=== PATIENT | male | born 1945 | race Caucasian/White ===

== ENCOUNTER 2021-09-23 05:41 | Outpatient (CLI) | payer MEDICARE ==
[~2021-09-23] VITALS: Ht 175.3 cm; Wt 79.5 kg
[2021-09-28] MEDS ORDERED: DOXA4TAB2 PO (10:22)
[2021-09-28] MEDS ORDERED: AMLO-251 PO (10:22)
[2021-09-28] MEDS ORDERED: MULT-593 PO (10:22)
[2021-09-28] MEDS ORDERED: MELA1TAB15 PO (10:22)
[2021-09-28] MEDS ORDERED: ENAL10TA75 PO (10:22)
[2021-09-28] MEDS ORDERED: ATOR20TA66 PO (10:22)
[2021-09-28] MEDS ORDERED: HYDR25TA4 PO (10:22)
== END 2021-09-28 12:01 | disposition home or self-care (01) ==
LOC: PREOP 05:41
PROVIDERS: ATTEND Internal Medicine
DX: Z01.818 Encounter for other preprocedural examination (principal)

== ENCOUNTER 2021-10-02 09:51 | Day surgery (SDC) | payer MEDICARE, OTHER ==
--- NOTE | 2021-09-22 15:42 | HISTORY AND PHYSICAL ---
DATE OF SERVICE: COLONOSCOPY HISTORY AND PHYSICAL HISTORY: The patient is a 74-year-old white male referred by Dr. Jung for screening colonoscopy. He had one other colonoscopy performed by myself in 2009, at which time he had moderate diverticular disease with two diminutive polyps, one hyperplastic in the mid rectum and tubular adenoma from the rectosigmoid junction. He is not aware of any family history for colon cancer. He denies bright red blood per rectum, melena, change in bowel habit or abdominal pain. PAST MEDICAL HISTORY: Significant for hypertension and hyperlipidemia. PAST SURGICAL HISTORY: Significant for cholecystectomy in 2004. FAMILY HISTORY: Mother of complications of hepatitis and type 2 diabetes the age of 49. Father of kidney failure at the age of 89. He has a twin brother who has hypertension and chronic kidney disease, recovering from COVID as brother smokes, she does not. SOCIAL HISTORY: The patient is retired with no significant alcohol intake and no past smoking history. REVIEW OF SYSTEMS: CONSTITUTIONAL: The patient denies chills, fever, night sweats or change in weight. CARDIOVASCULAR: Denies chest pain, shortness of breath, orthopnea, PND or pedal edema. PULMONARY: Denies cough, wheezing or dyspnea on exertion. GASTROINTESTINAL: As noted in the HPI. PHYSICAL EXAMINATION: GENERAL: Reveals a well-appearing white male, appears to be in no acute distress. VITAL SIGNS: Weight 180.2 pounds, blood pressure 110/72. HEENT: Unremarkable. Sclerae nonicteric. No evidence for pallor. CHEST: Clear to auscultation. CARDIOVASCULAR: Reveals a regular rate and rhythm without murmur, S3 or S4. ABDOMEN: Soft, supple without mass, organomegaly or tenderness. EXTREMITIES: Reveal no cyanosis, clubbing or edema. ASSESSMENT: The patient is set up for screening colonoscopy, deemed to be of average risk. Prep instructions with the Suprep kit were given and questions answered. Thank you for the referral of this pleasant gentleman. Job ID: [id number] DocumentID: [id number] Dictated Date: 09/14/2021 17:58:47 Senior Manufacturing Engineer Date: 09/14/2021 18:15:05 Dictated By: TAYLOR HEWITT MD
[~2021-10-02] VITALS: Ht 175.3 cm; Wt 79.5 kg
[~2021-10-02 09:51] MED LIST: AMLO-251 PO; ATOR20TA66 PO; DOXA4TAB2 PO; ENAL10TA75 PO; HYDR25TA4 PO; MELA1TAB15 PO; MULT-593 PO
[2021-10-02] MEDS ORDERED: LACTATED RINGERS 1,000 ML IV STA (09:58)
[2021-10-02] MEDS ORDERED: LIDOCAINE JELLY 2% 6 ML SYRINGE MM PRN (10:00)
[2021-10-02 10:05] VITALS: BP 119/60
[2021-10-02] MEDS ORDERED: PROPOFOL INJECTION 50 ML IV ONE (11:44)
--- NOTE | 2021-10-02 11:47 | Pre-Op Note & Conscious Sedat ---
Pre-Operative Progress Note H&P Reviewed The H&P was reviewed, patient examined and no changes noted. Date H&P Reviewed: Oct 02, 2021 Time H&P Reviewed: 11:00 Conscious Sedation Pre-Proced ASA Score 2 �For ASA 3 and 4: Consider anesthesia and medical clearance.� Also, for patients with a history of failed moderate sedation consider anesthesia.� Airway Lungs Heart ASA score ASA 1: a normal healthy patient ASA 2: a patient with a mild systemic disease (mid diabetes, controlled hypertension, obesity ASA 3: a patient with a severe systemic disease that limits activity (angina, COPD, prior Myocardial infarction) ASA 4: a patient with an incapacitating disease that is a constant threat to life (CHF, renal failure) ASA 5: a moribund patient not expected to survive 24 hrs. (ruptured aneurysm) ASA 6: a declared brain- patient whose organs are being harvested. For emergent operations, add the letter E after the classification Mallampati Classification Grade 2 Sedation Plan Analgesia, Amnesia, Plan communicated to team members, Discussed options with patient/fam, Discussed risks with patient/fam The patient is an appropriate candidate to undergo the planned procedure, sedation, and anesthesia. The patient immediately re-assessed prior to indication. TAYLOR HEWITT MD Oct 02, 2021 11:47
[2021-10-02 12:14] VITALS: BP 108/59
[2021-10-02 12:15] VITALS: BP 109/62
[2021-10-02 12:40] VITALS: BP 134/87
[2021-10-02 12:48] VITALS: BP 134/87
--- NOTE | 2021-10-02 12:58 | Anesthesia-General Post-Op ---
MAC Patient Condition Mental Status/LOC: Same as Preop Cardiovascular: Satisfactory Nausea/Vomiting: Absent Respiratory: Satisfactory Pain: Controlled Complications: Absent Post Op Complications Complications None Follow Up Care/Instructions Patient Instructions None needed. Anesthesiology Discharge Order Discharge Order Patient is doing well, no complaints, stable vital signs, no apparent adverse anesthesia problems. No complications reported per nursing. NOEL HAGAN CRNA Oct 02, 2021 12:58
--- NOTE | 2021-10-02 19:07 | OPERATIVE REPORT ---
DATE OF SERVICE: COLONOSCOPY SUMMARY INDICATION FOR THE PROCEDURE: Screening colonoscopy. DESCRIPTION OF PROCEDURE: The patient was placed in the left lateral decubitus position. Prior to undergoing colonoscopy, a digital rectal evaluation was performed. Anal sphincter tone was normal and the perianal reflex was intact. The prostate as well as anal canal and distal rectal vault were unremarkable to digital inspection. The colonoscope was then inserted into the rectum and under direct visualization advanced to the cecum. The cecum was identified by identification of the ileocecal valve and cecal strap. Photographic documentation was obtained. Quality of the prep was good. FINDINGS: There was no evidence for internal or external hemorrhoids and the rectum was unremarkable. Findings compatible with moderate diverticular disease confined to the sigmoid colon were present without evidence for diverticulitis. The descending colon, splenic flexure, transverse colon, hepatic flexure, ascending colon, and cecum were unremarkable. ASSESSMENT: 1. No evidence for neoplasia was identified today. Considering today's findings and lack of family history for colon cancer, it is highly debatable as to whether or not future screening colonoscopy will be recommended, but would advocate consideration in 10 years. 2. Moderate diverticular disease confined to the sigmoid colon was present without evidence for diverticulitis. I thank you for the referral of this extremely pleasant gentleman. Job ID: [id number] DocumentID: [id number] Dictated Date: 10/02/2021 13:01:14 Residential Program Coordinator Date: 10/02/2021 19:07:03 Dictated By: TAYLOR HEWITT MD [facility]
== END 2021-10-02 13:00 | disposition home or self-care (01) ==
LOC: ENDO 09:51
PROVIDERS: ATTEND Internal Medicine
DX: Z12.11 Encounter for screening for malignant neoplasm of colon (principal); K57.30 Diverticulosis of large intestine without perforation or abscess without bleeding; I10 Essential (primary) hypertension; Z87.891 Personal history of nicotine dependence; Z79.899 Other long term (current) drug therapy; Z87.19 Personal history of other diseases of the digestive system; Z86.010 Personal history of colon polyps

== ENCOUNTER → 2021-11-05 | Outpatient (CLI) | payer MEDICARE, OTHER | LOC: LABNPT 08:12 | PROVIDERS: ATTEND Internal Medicine | DX: Z01.812 Encounter for preprocedural laboratory examination (principal); Z20.822 Contact with and (suspected) exposure to COVID-19 | CPT/HCPCS: 87635; 87636 ==